=== PATIENT | female | born 1970 | race Caucasian/White ===

== ENCOUNTER 2016-12-18 14:45 | Emergency (ER) | payer OTHER ==
--- NOTE | 2016-12-18 14:50 | ER Document Report ---
ED Medical Screen (RME) - General Stated Complaint: RASH/COUGH/FEVER Notes: Patient is a 46-year-old female presents emergency Department complaining of rash over, chest cold, sore throat, coughing, fever with onset on Monday. Rash was new this AM, itching. denies recent outdoor exposure. erythematous macular rash visible taking benadryl, asa I have greeted and performed a rapid initial assessment of this patient. A comprehensive ED assessment and evaluation of the patient, analysis of test results and completion of the medical decision making process will be conducted by additional ED providers. TRAVEL OUTSIDE OF THE [place] IN LAST 30 DAYS: No - Related Data Allergies/Adverse Reactions: Penicillins Allergy (Verified 08/25/15 16:02) Past Medical History - Past Medical History Cardiac Medical History: Reports: Hx Hypertension Musculoskeltal Medical History: Reports Hx Arthritis - of spine Past Surgical History: Reports: Hx Section - x4, Hx Cholecystectomy, Hx Gynecologic Surgery - Immunizations Hx Diphtheria, Pertussis, Tetanus Vaccination: Yes
--- NOTE | 2016-12-18 15:09 | ER Document Report ---
ED General - General Chief Complaint: Chest Congestion Stated Complaint: RASH/COUGH/FEVER Mode of Arrival: Ambulatory Information source: Patient TRAVEL OUTSIDE OF THE [place] IN LAST 30 DAYS: No - HPI Onset: Other - 5 DAYS (URI SXS), 1 DAY (RASH) - Related Data Allergies/Adverse Reactions: Penicillins Allergy (Verified 12/18/16 14:48) Past Medical History - General Information source: Patient - Social History Smoking Status: Unknown if Ever Smoked Chew tobacco use (# tins/day): No Frequency of alcohol use: None Drug Abuse: None Lives with: Alone Family History: Reviewed & Not Pertinent Patient has suicidal ideation: No Patient has homicidal ideation: No - Past Medical History Cardiac Medical History: Reports: Hx Hypertension Pulmonary Medical History: Reports: None EENT Medical History: Reports: None Neurological Medical History: Reports: None Endocrine Medical History: Reports: None Renal/ Medical History: Reports: None. 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 denies: Hemoptysis, Wheezing Gastrointestinal: Poor appetite Genitourinary: No symptoms reported Female Genitourinary: No symptoms reported Musculoskeletal: See HPI Skin: Rash Neurological/Psychological: No symptoms reported Physical Exam - Vital signs Vitals: Temp Pulse Resp BP Pulse Ox 98.5 F 92 22 H 160/72 H 100 12/18/16 14:50 12/18/16 14:50 12/18/16 14:50 12/18/16 14:50 12/18/16 14:50 Interpretation: Hypertensive, Tachypneic. No: Tachycardic, Febrile - General General appearance: Appears well, Alert In distress: None - HEENT Head: Normocephalic Eyes: Normal Conjunctiva: Normal Ears: Normal Nasal: Normal Mouth/Lips: Normal Mucous membranes: Normal - Respiratory Respiratory status: No respiratory distress Breath sounds: Normal - Cardiovascular Rhythm: Regular Heart sounds: Normal auscultation Murmur: No - Abdominal Inspection: Normal, Obese - Back Back: Normal - Extremities General upper extremity: Normal inspection General lower extremity: Normal inspection. No: Tender, Edema - Neurological Neuro grossly intact: Yes Cognition: Normal Orientation: AAOx4 - Psychological Associated symptoms: Normal affect, Normal mood - Skin Skin Temperature: Warm Skin Moisture: Dry Skin Color: Normal Skin Turgor: Elastic Skin irregularity: Rash Location of irregularity: Generalized - MORE CENTRIPETAL Character of irregularity: Symmetric, Macular, Erythematous. negative: Papular , Polycyclic, Vesicular, Petechial, Urticarial Course - Vital Signs Vital signs: Temp Pulse Resp BP Pulse Ox 98.2 F 98 16 148/78 H 99 12/18/16 17:07 12/18/16 17:07 12/18/16 17:07 12/18/16 17:07 12/18/16 17:07 - Laboratory Result Diagrams: 12/18/16 17:02 12/18/16 17:02 Laboratory results interpreted by me: 12/18/16 12/18/16 17:02 17:02 Hgb 11.4 L Hct 33.6 L RDW 14.4 H ESR 31 H Glucose 117 H AST 42 H ALT 55 H Discharge - Discharge Clinical Impression: Viral URI, Viral exanthem Condition: Stable Disposition: HOME, SELF-CARE Instructions: Upper Respiratory Illness ([facility]), Viral Syndrome ([facility]) Additional Instructions: REST, DRINK PLENTY OF FLUIDS. TAKE PREDNISONE DIRECTED, BEGINNING THIS PM. TAKE MUCINEX OR SIMILAR EXPECTORANT TO LOOSEN SECRETIONS. FOLLOW UP WITH YOUR PRIMARY CARE PROVIDER IF NOT IMPROVED IN 3-4 DAYS. RETURN TO E.R. IF YOU GET WORSE, ANY TIME. Prescriptions: Prednisone [Deltasone 20 mg Tablet] 20 mg PO BID #7 tablet Forms: Return to Work Referrals: HAL CHACKO MD [Primary Care Provider] - Follow up as needed
[2016-12-18 17:14] LABS: ABSOLUTE BASOPHILS # (AUTO) 0.1 10^3/uL (0.0-0.2); ABSOLUTE EOSINOPHILS # (AUTO) 0.4 10^3/uL (0.0-0.6); ABSOLUTE LYMPHOCYTES (AUTO) 2.6 10^3/uL (0.5-4.7); ABSOLUTE MONOCYTES (AUTO) 0.6 10^3/uL (0.1-1.4); ABSOLUTE NEUT (AUTO) 4.1 10^3/uL (1.7-8.2); BASOPHILS % (AUTO) 0.7 % (0-2); EOSINOPHILS % (AUTO) 5.3 % (0-6); HEMATOCRIT 33.6 % (36.0-47.0); HEMOGLOBIN 11.4 g/dL (12.0-15.5); HGB HCT DIFFERENCE 0.6; LYMPHOCYTES % (AUTO) 33.4 % (13-45); MEAN CORPUSCULAR HEMOGLOBIN 29.1 pg (27.0-33.4); MEAN CORPUSCULAR HGB CONC 33.8 g/dL (32.0-36.0); MEAN CORPUSCULAR VOLUME 86 fl (80-97); MONOCYTES % (AUTO) 7.6 % (3-13); RED BLOOD COUNT 3.91 10^6/uL (3.72-5.28); RED CELL DISTRIBUTION WIDTH 14.4 % (11.5-14.0); WHITE BLOOD COUNT 7.7 10^3/uL (4.0-10.5)
[2016-12-18 17:35] LABS: ALANINE AMINOTRANSFERASE 55 U/L (9-52); ALBUMIN 3.7 g/dL (3.5-5.0); ALKALINE PHOSPHATASE 103 U/L (38-126); ANION GAP 10 (5-19); ASPARTATE AMINO TRANSFERASE 42 U/L (14-36); BILIRUBIN,TOTAL 0.3 mg/dL (0.2-1.3); BLOOD UREA NITROGEN 11 mg/dL (7-20); CALCIUM 8.9 mg/dL (8.4-10.2); CARBON DIOXIDE 27 mmol/L (22-30); CHLORIDE 105 mmol/L (98-107); GLUCOSE 117 mg/dL (75-110); TOTAL PROTEIN 6.7 g/dL (6.3-8.2)
[2016-12-18 17:38] VITALS: BP 148/78
[2016-12-18 17:54] LABS: ERYTHROCYTE SEDIMENTATION RATE 31 mm/hr (0-20)
== END 2016-12-18 18:30 | disposition home or self-care (01) ==
LOC: ER 14:45
DX: J06.9 Acute upper respiratory infection, unspecified (principal); B09 Unspecified viral infection characterized by skin and mucous membrane lesions; R09.89 Other specified symptoms and signs involving the circulatory and respiratory systems; I10 Essential (primary) hypertension; Z88.0 Allergy status to penicillin; Z90.49 Acquired absence of other specified parts of digestive tract
CPT/HCPCS: 36415; 71020; 80053; 85025; 85652; 87070; 87804; 87880; 99283